=== PATIENT | female | born 2005 | race African-American/Black ===

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

== ENCOUNTER 2023-05-07 15:32 | Emergency (ER) | payer MEDICAID ==
[~2023-05-07] VITALS: Ht 180.3 cm; Wt 125.0 kg
[2023-05-07 16:19] LABS: Basophils # (auto) 0 10 ^3/uL (0-0.2); Basophils % (auto) 0.4 % (0.0-2.0); Eosinophils # (auto) 0 10 ^3/uL (0-0.8); Eosinophils % (auto) 0.7 % (0.0-7.0); Hematocrit 35.3 % (36.0-46.0); Hemoglobin 11.3 g/dL (12.2-16.2); Lymphocytes # (auto) 1.9 10 ^3/uL (0.4-5.4); Lymphocytes % (auto) 26.5 % (10.0-50.0); Mean Corpuscular Hemoglobin 22.9 pg (28.0-32.0); Mean Corpuscular Hgb Conc. 31.9 g/dL (32.0-36.0); Mean Corpuscular Volume 71.8 fL (80.0-100.0); Monocytes # (auto) 0.4 10 ^3/uL (0-1.3); Neutrophils # (auto) 4.7 10 ^3/uL (1.6-8.6); Neutrophils % (auto) 66.4 % (37.0-80.0); Nucleated Red Blood Cells % 0.1 %; Red Blood Cells 4.91 10^6/uL (4.0-5.20); Red Cell Distribution Width 15.5 % (11.8-14.3)
[2023-05-07 16:36] LABS: Urine Bacteria NONE SEEN /hpf (None Seen); Urine Blood Negative /uL (Negative); Urine Clarity HAZY (Clear); Urine Color Yellow (Yellow); Urine Mucus FEW (None Seen); Urine Protein, UAD Negative (Negative); Urine Specific Gravity 1.019 (1.001-1.035); Urine Urobilinogen Normal (Negative); Urine WBC 1 /hpf (0 - 5); Urine pH 6.5 (5.0-8.0)
[2023-05-07 16:37] LABS: Alanine Aminotransferase 12 U/L (7-40); Albumin 4.6 g/dL (3.2-4.8); Alkaline Phosphatase 94 U/L (46-116); Anion Gap 4 (5-15); Aspartate Aminotransferase 13 U/L (13-40); BUN/Creatinine Ratio 7.2 (10.0-20.0); Bilirubin, Total 0.4 mg/dL (0.2-1.0); Blood Urea Nitrogen 7 mg/dL (9-23); Calcium 9.5 mg/dL (8.7-10.4); Carbon Dioxide 29 mmol/L (20-30); Chloride 104 mmol/L (98-107); Glucose 84 mg/dL (74-106); Potassium 4.1 mmol/L (3.5-5.1); Sodium 137 mmol/L (136-145)
[2023-05-07 16:38] LABS: Total Protein 7.6 g/dL (5.7-8.2)
[2023-05-07 22:32] VITALS: PULSE 79; RESP 16; O2SAT 100
[2023-05-07 22:33] VITALS: BP 139/93; PULSE 79; RESP 16; TEMP 97.6; O2SAT 100
== END 2023-05-07 22:44 | disposition home or self-care (01) ==
LOC: ER 15:32
DX: R55 Syncope and collapse (principal); R42 Dizziness and giddiness
CPT/HCPCS: 36415; 80053; 81001; 85025; 93005

== ENCOUNTER 2023-05-23 02:48 | Emergency (ER) | payer MEDICAID ==
[~2023-05-23] VITALS: Ht 180.3 cm; Wt 124.0 kg
[2023-05-23] MEDS ORDERED: ACETAMINOPHEN 325 MG TAB PO ONE (03:15)
[2023-05-23] MEDS ORDERED: AUG875T PO (05:05)
[2023-05-23] MEDS ORDERED: PRED20TA2 PO (05:06)
[2023-05-23 05:41] VITALS: BP 122/69; PULSE 96; RESP 16; O2SAT 97
[2023-05-23 05:43] VITALS: TEMP 98.8
== END 2023-05-23 05:43 | disposition home or self-care (01) ==
LOC: ER 02:48
DX: J02.0 Streptococcal pharyngitis (principal); H65.91 Unspecified nonsuppurative otitis media, right ear; J45.909 Unspecified asthma, uncomplicated